=== PATIENT | female | born 1970 | race Caucasian/White ===

== ENCOUNTER 2017-06-27 06:17 | Day surgery (SDC) | payer BC ==
[~2017-06-27] VITALS: Ht 157.5 cm; Wt 95.2 kg
--- NOTE | ~2017-06-27 | OP ---
Record Of Operation [facility] [address] [place]. [address] NAME: ABBIE RODRIGUEZ : 68 STATUS : REG [facility]#: [id number] AGE: 46 ADM/REG DATE : 06/27/17 MR#: [id number] REPORT SERV DATE: 06/27/17 DICTATED BY: NITZA ARANDA JR. 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 She is in need of removal of her venous port. PREOPERATIVE DIAGNOSIS: History of breast cancer with need of removal of venous port. POSTOPERATIVE DIAGNOSIS: History of breast cancer with need of removal of venous port. SURGERY PERFORMED: Removal of venous port. PROCEDURE IN DETAIL: The patient was prepped and draped in supine position in usual sterile fashion. 1% Xylocaine was used to anesthetize the old incision on the left side. The incision was made and the port site entered. The port system was removed in toto. The wound was irrigated and hemostasis obtained. The wound was closed with three layers of Monocryl. The patient tolerated the procedure well without complications. ESTIMATED BLOOD LOSS: 5 mL. SPONGE COUNT: Correct. /ARTUR Nitza Aranda Jr., M.D. / [id number] CC: Heron Knowles Jr., M.D. Monique Golding, M.D. Andrea Galloway, M.D. #[id number] (DR. ARANDA) JOÃO MONTES NP
[~2017-06-27 06:17] MED LIST: ARMOUR THYRO60 MG PO; FISH-EPA1000 MG PO; MUCINEX1200 MG PO; MULTIPLE VIT PO; PROBIOTIC PO; TAMOXIFEN20 M1 PO; TUMERIC PO; VITAMIN; VITAMIN D2000 UNIT PO
== END 2017-06-27 15:04 | disposition home or self-care (01) ==
LOC: SDC 06:17
PROVIDERS: Surgery Surgical Oncology
PROC: 0WP8X3Z Removal of Infusion Device from Chest Wall, External Approach (ICD-10-PCS; principal; 2017-06-27 07:45)
DX: Z45.2 Encounter for adjustment and management of vascular access device (principal); Z85.3 Personal history of malignant neoplasm of breast; Z88.2 Allergy status to sulfonamides; Z87.891 Personal history of nicotine dependence; Z90.710 Acquired absence of both cervix and uterus; Z98.51 Tubal ligation status; Z90.89 Acquired absence of other organs; Z98.890 Other specified postprocedural states
CPT/HCPCS: J0690